=== PATIENT | male | born 1960 | race Hispanic/Latino ===

== ENCOUNTER → 2022-02-24 | Outpatient (CLI) | payer BC | END | disposition home or self-care (01) | LOC: RAH 15:23 | PROVIDERS: ATTEND Orthopaedic Surgery | DX: M19.071 Primary osteoarthritis, right ankle and foot (principal); M47.819 Spondylosis without myelopathy or radiculopathy, site unspecified; M25.771 Osteophyte, right ankle; Z98.890 Other specified postprocedural states | CPT/HCPCS: 73700 ==

== ENCOUNTER → 2023-11-20 | Outpatient (CLI) | payer BC ==
[2023-11-20 12:37] LABS: ALBUMIN 3.7 g/dL (3.5-5.0); BILIRUBIN,TOTAL 0.5 mg/dL (0.2-1.0); CREATININE 0.9 mg/dL (0.5-1.3); POTASSIUM 4.8 mmol/L (3.5-5.1); TOTAL PROTEIN, SERUM 7.8 g/dL (6.0-8.3)
== END | disposition home or self-care (01) ==
LOC: LAB 09:00
PROVIDERS: ATTEND Student in an Organized Health Care Education/Training Program
DX: R00.2 Palpitations (principal)
CPT/HCPCS: 36415; 80053; 80061; 83036